=== PATIENT | female | born 1950 | race African-American/Black ===

== ENCOUNTER 2022-05-06 11:50 | Emergency (ER) | payer MEDICARE, OTHER, MEDICAID ==
[~2022-05-06] VITALS: Ht 165.1 cm; Wt 77.0 kg
[2022-05-06] MEDS ORDERED: IPRATROPIUM BROMIDE (0.02%) 0.5MG/2.5ML NEB HHN STA (14:08)
[2022-05-06] MEDS ORDERED: DIAZEPAM 5 MG/ML 2ML CPJ IV ONE (14:15)
[2022-05-06] MEDS: ALBUTEROL (0.083%) 2.5MG/3ML NEB HHN SCH ×3 (14:21→15:11)
[2022-05-06 15:45] VITALS: BP 154/98
[2022-05-06 15:50] LABS: BASOPHILS % 0.8 % (0.0-2.0); EOSINOPHILS % 0.4 % (0.0-5.0); HEMATOCRIT. 38.4 % (36.0-48.0); HEMOGLOBIN. 12.8 g/dL (12.0-16.0); LYMPHOCYTES % 43.5 % (20.0-50.0); MEAN CORPUSCULAR HEMOGLOBIN 30.9 pg (28.0-32.0); MEAN CORPUSCULAR VOLUME 92.9 fL (81.0-99.0); MEAN PLATELET VOLUME 7.8 fl (7.4-10.4); MONOCYTES % 6.6 % (2.0-8.0); NEUTROPHILS % 48.7 % (40.0-76.0); PLATELET 279 x1000/uL (130-400); RED BLOOD CELL COUNT 4.13 mill/uL (4.2-5.4); RED CELL DISTRIBUTION WIDTH 13.9 % (11.6-14.6)
[2022-05-06 16:00] LABS: CHLORIDE 108 mEq/L (98-107)
[2022-05-06 16:11] LABS: ETHANOL BLOOD < 10 mg/dL
== END 2022-05-06 15:45 | disposition home or self-care (01) ==
LOC: ER 11:50
DX: J98.01 Acute bronchospasm (principal); F16.129 Hallucinogen abuse with intoxication, unspecified; R00.0 Tachycardia, unspecified; R03.0 Elevated blood-pressure reading, without diagnosis of hypertension; H55.00 Unspecified nystagmus
CPT/HCPCS: 36415; 71045; 80053; 80320; 82962; 83880; 85025; 93005; 94640; 99285; G0480

== ENCOUNTER 2025-09-22 18:46 | Emergency (ER) | payer MEDICARE, MEDICAID ==
[~2025-09-22] VITALS: Ht 170.2 cm; Wt 72.0 kg
[2025-09-22 18:48] VITALS: TEMP 98.4; O2SAT 99
[2025-09-22] MEDS: DEXAMETHASONE 4MG TABLET PO ONE (19:52)
[2025-09-22] MEDS: LIDOCAINE 5% PATCH TOP SCH (19:53)
[2025-09-22] MEDS: IBUPROFEN 600MG TABLET PO ONE (19:58)
[2025-09-22] MEDS ORDERED: CYCL10TA21 MT (21:43)
[2025-09-22 21:47] LABS: INFLUENZA TYPE A Presumptive Negative (Pres. Neg.); INFLUENZA TYPE B Presumptive Negative (Pres. Neg.)
[2025-09-22 21:48] LABS: RESPIRATORY SYNCYTIAL VIRUS Not Detected (Not Detectd)
[2025-09-22] MEDS: OXYCODONE HCL 5MG TABLET PO ONE (21:55)
[2025-09-22 21:59] VITALS: BP 168/101; PULSE 71; RESP 16; O2SAT 100
== END 2025-09-22 22:05 | disposition home or self-care (01) ==
LOC: ER 18:46
DX: M16.11 Unilateral primary osteoarthritis, right hip (principal); I10 Essential (primary) hypertension; Z20.822 Contact with and (suspected) exposure to COVID-19; Z98.890 Other specified postprocedural states; Z88.0 Allergy status to penicillin; W19.XXXA Unspecified fall, initial encounter; Y93.89 Activity, other specified; Y92.89 Other specified places as the place of occurrence of the external cause; Y99.8 Other external cause status
CPT/HCPCS: 99284; 71045; 87426; 87420; 87804 ×2; 73502; J8540